=== PATIENT | male | born 1995 | race African-American/Black ===

== ENCOUNTER 2024-11-09 11:06 | Emergency (ER) | payer OTHER, MEDICAID ==
[~2024-11-09] VITALS: Ht 188 cm; Wt 86.0 kg
[~2024-11-09 11:06] MED LIST: IBUP-1985 PO
[2024-11-09 11:14] VITALS: BP 123/76; PULSE 81; TEMP 98; O2SAT 99
--- NOTE | 2024-11-09 11:55 | RADIOLOGY REPORT ---
CLINICAL INDICATION: LT.Shoulder Pain TECHNIQUE: 3 radiographic views of the left shoulder were obtained. Comparison: None FINDINGS/IMPRESSION: There is no evidence of acute fracture or dislocation. The visualized joint space is well maintained. The alignment is anatomical. There is no radiopaque foreign body.
[2024-11-09 12:49] VITALS: RESP 16
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
== END 2024-11-09 13:28 | disposition home or self-care (01) ==
LOC: ER 11:06
DX: S19.9XXA Unspecified injury of neck, initial encounter (principal); M54.2 Cervicalgia; Z79.899 Other long term (current) drug therapy; V89.2XXA Person injured in unspecified motor-vehicle accident, traffic, initial encounter; Y93.89 Activity, other specified; Y92.410 Unspecified street and highway as the place of occurrence of the external cause; Y99.8 Other external cause status
CPT/HCPCS: 73030; 99283

== ENCOUNTER 2024-11-13 04:48 | Emergency (ER) | payer OTHER, MEDICAID ==
[~2024-11-13] VITALS: Ht 188 cm; Wt 85.0 kg
[2024-11-13 05:08] VITALS: TEMP 98.4
[2024-11-13 06:26] VITALS: BP 130/84; PULSE 55; O2SAT 100
[2024-11-13 06:28] VITALS: RESP 15
[2024-11-13] MEDS: ketorolac trometh 15mg/ml vial 15 MG/ML ML IM ONE (06:28)
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
== END 2024-11-13 06:57 | disposition home or self-care (01) ==
LOC: ER 04:48
DX: S46.912A Strain of unspecified muscle, fascia and tendon at shoulder and upper arm level, left arm, initial encounter (principal); V89.2XXA Person injured in unspecified motor-vehicle accident, traffic, initial encounter; Y93.89 Activity, other specified; Y92.89 Other specified places as the place of occurrence of the external cause; Y99.8 Other external cause status
CPT/HCPCS: 96372; 99283; J1885